=== PATIENT | male | born 1965 | race Caucasian/White ===

== ENCOUNTER 2022-07-03 08:22 | Day surgery (SDC) | payer OTHER ==
[~2022-07-03] VITALS: Ht 172.7 cm; Wt 92.7 kg
[~2022-07-03 08:22] MED LIST: SODIUM CHLORIDE 0.9% 1,000 ML IV ONE
[2022-07-03] MEDS ORDERED: SODIUM CHLORIDE 0.9% 1,000 ML ONE (08:36)
[2022-07-03] MEDS ORDERED: MIDAZOLAM HCL 5 MG/ML VIAL ONE (08:38)
[2022-07-03] MEDS ORDERED: FentaNYL CITRATE PF 100 MCG/2 ML VIAL ONE (08:38)
[2022-07-03 08:47] LABS: COVID AG,FIA SOURCE NASAL SWAB
== END 2022-07-03 09:26 ==
LOC: SURGERY 08:22
PROVIDERS: ATTEND Internal Medicine Critical Care Medicine
DX: R05.3 Chronic cough (principal); Z53.8 Procedure and treatment not carried out for other reasons; D64.9 Anemia, unspecified; Z79.899 Other long term (current) drug therapy; Z98.890 Other specified postprocedural states; Z20.822 Contact with and (suspected) exposure to COVID-19
CPT/HCPCS: 87426; C9803; J7030; J2250; J3010